=== PATIENT | male | born 1990 | race Caucasian/White ===

== ENCOUNTER 2019-12-19 08:02 | Emergency (ER) | payer OTHER, BC, SELFPAY ==
--- NOTE | ~2019-12-19 | XR_ITS ---
XR hand RT min 3V 12/19/2019 08:24 Indication: Injury to the right hand. Metacarpal pain. Procedure: 3 views right hand Comparison: No prior studies for comparison. Findings: There is an oblique shaft fracture of the fourth metacarpal with one cortical bone width ul mark and dorsal displacement. No significant angulation. No other fractures. Impression: 1: Oblique extra-articular right fourth metacarpal fracture with mild ulnar/dorsal displacement. Reviewed, dictated and finalized at location A. Impression: 1: Oblique extra-articular right fourth metacarpal fracture with mild ulnar/shima christiano displacement.
--- NOTE | 2019-12-19 08:05 | ED.GENADULT ---
HPI - General Adult General Chief complaint: Extremity Injury, Upper Stated complaint: right arm swollen Time Seen by Provider: 12/19/19 08:05 Source: patient Mode of arrival: ambulatory Limitations: no limitations History of Present Illness HPI narrative: 29-year-old male patient presents to the [facility] with complaints of right hand pain. Patient states he was at work last night and was trying to push a height together and states that the pipe slipped jamming into his ring finger on the right hand. Patient states he noticed today that he started having some swelling to the area. Patient states it hurts to move it especially when he tries to hyperextend the wrist. Patient denies taking anything for pain. Patient denies putting any ice on it. Patient notified that we do not do Workmen's Comp. paperwork here. Patient is aware of this. Related Data Home Medications Medication Instructions Recorded Confirmed No Home Medications 12/19/19 12/19/19 Allergies Allergy/AdvReac Type Severity Reaction Status Date / Time No Known Drug Allergies Allergy Unknown Verified 12/19/19 08:19 Review of Systems Review of Systems: Narrative: CONSTITUTIONAL: Denies fever, chills, or sweats. EYES: Denies visual changes, redness, or discharge. ENT: Denies rhinorrhea, congestion, sore throat, or otalgia. CARDIOVASCULAR: Denies chest pain, palpitations, or edema. RESPIRATORY: Denies cough or dyspnea. GASTROINTESTINAL: Denies abdominal pain, nausea, vomiting, or diarrhea. GENITOURINARY: Denies dysuria or hematuria. SKIN: Denies rash or itching. MUSCULOSKELETAL: Denies back pain, joint pain, or myalgia. Positive right hand pain since last night NEUROLOGIC: Denies headache, numbness, or weakness. PSYCHIATRIC: Denies anxiety or depression. PMFSH Comments At the time of my signature I agree with nursing past medical history, surgical, social, and family history. There is no relevant family history pertinent to the presenting complaint. Exam Narrative: Exam Narrative: GENERAL: Well-appearing, well-nourished, and in no acute distress. HEAD: Normocephalic, atraumatic. EYES: PERRLA and EOMI. ENT: Nares clear, no rhinorrhea or epistaxis. Mucous membranes moist. NECK: Supple. No lymphadenopathy CHEST: Clear to auscultation. No respiratory distress. HEART: Regular rate and rhythm. No murmur heard. Normal peripheral pulses. ABDOMEN: Soft, nontender, nondistended, normal active bowel sounds. EXTREMITIES: The R hand is without obvious asymmetry or deformity when compared to the L hand. Slight swelling over the dorsal side of the right hand along the fourth metacarpal, no erythema, atrophy, or obvious deformity. No surface trauma, open wounds, nail avulsion, tissue avulsion, partial or complete amputation, subungual hematoma, bony deformity. Normal cascade of fingers. Normal flexion and extension of fingers. FDS and FDP intact aganist restistance. No focal fullness, thobbing pain, swelling of fingertip. tenderness to palpation over the fourth digit and fourth metacarpal. Pulses and cap refill. SKIN: Warm, dry, no rash. NEURO: No focal deficits. Alert and oriented x3. Course Reevaluation(s) Reevaluation #1: Reevaluated patient after his x-ray had resulted. Notified him that he does have a fourth metatarsal fracture on the right hand. Patient is right-hand dominant. Discussed with patient that our plan of care is to go ahead and splint him today and I am going to have him follow-up with Dr. White who is our hand surgeon for further evaluation and treatment. Discussed with patient he can take Tylenol ibuprofen as needed for the pain. Discussed with him that while I do not do the Workmen's Comp. paperwork I will go ahead and write him off of work until he follows up with Dr. 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 Patient verbalizes understanding of this and denies any other questions or concerns. Date:
[2019-12-19 08:15] VITALS: BP 145/87; PULSE 84; RESP 16; TEMP 37.6; O2SAT 100
== END 2019-12-19 08:55 | disposition home or self-care (01) ==
PROVIDERS: Emergency Provider Nurse Practitioner Family
DX: S62.324A Displaced fracture of shaft of fourth metacarpal bone, right hand, initial encounter for closed fracture (principal); W23.0XXA Caught, crushed, jammed, or pinched between moving objects, initial encounter
CPT/HCPCS: 29125; 73130; 99214; G0463

== ENCOUNTER 2023-03-17 14:01 | Emergency (ER) | payer BC, SELFPAY ==
--- NOTE | 2023-03-17 14:02 | ED.SKABFB ---
HPI - Skin/Abscess/Foreign Bdy General Chief complaint: Skin/Abscess/Foreign Body Stated complaint: Bumps/Lumps on Back Time Seen by Provider: 03/17/23 14:02 Source: patient Mode of arrival: ambulatory Limitations: no limitations History of Present Illness HPI narrative: Tera is a 32-year-old male patient presenting to the clinic today with complaints of a skin lesion to his upper midback. He reports that it started bleeding and got cut today. States he laid down on the bed and had blood all over the bed and it stuck to the bed. Related Data Home Medications Medication Instructions Recorded Confirmed No Home Medications 12/19/19 12/19/19 Allergies Allergy/AdvReac Type Severity Reaction Status Date / Time No Known Drug Allergies Allergy Unknown Verified 12/19/19 08:19 Review of Systems Review of Systems: Pertinent positives per HPI. Patient denies any fever, chills, rash, headache, visual changes, dizziness, cough, runny nose, sore throat, shortness of breath, chest pain, palpitations, nausea, vomiting, diarrhea, constipation, abdominal pain, or any urinary issues. PMFSH Comments At the time of my signature, I reviewed and agree with the nursing past medical, surgical, social, and family history. There is no relevant family history pertinent to the patient complaint. Exam Narrative: General: Well-developed, well nourished, in no apparent distress Head: Normocephalic, atraumatic. Cardio: Regular rate and rhythm, s1 and s2 normal, no murmur appreciated. Resp: Clear to auscultation bilaterally, no rhonchi, rales, wheezing or rubs. Integumentary: [place], warm, and dry, red raised papular skin lesion measuring 1 cm x 1 cm to the right upper midback-dry blood noted around the lesion Course Course Emergency Course: Portions of this record may have been created with voice recognition software. Level of Care: Express Care Visit Vital Signs Vital signs: Vital Signs Temperature 36.8 C 03/17/23 14:16 Pulse Rate 87 03/17/23 14:16 Respiratory Rate 18 03/17/23 14:16 Blood Pressure 143/81 H 03/17/23 14:16 Pulse Oximetry 100 03/17/23 14:16 Oxygen Delivery Room Air 03/17/23 14:16 Temperature 36.8 C 03/17/23 14:16 Pulse Rate 87 03/17/23 14:16 Respiratory Rate 18 03/17/23 14:16 Blood Pressure 143/81 H 03/17/23 14:16 Pulse Oximetry 100 03/17/23 14:16 Oxygen Delivery Room Air 03/17/23 14:16 Vital signs reviewed MDM - Skin/Abscess/Foreign Bdy MDM Narrative Medical decision making narrative: At the time of visit patient is resting comfortably on exam table. Pain patient has a red papular skin lesion to the right mid upper back. Recommend follow-up with dermatology for further evaluation and possible removal. Supportive measures were discussed with the patient he voiced understanding discharge instructions agrees to treatment plan. Differential Diagnosis Differential diagnosis: Likely other (Skin lesion, nevi, skin tag) Discharge Plan Discharge Clinical Impression: Skin lesion Patient Disposition: Home, Self-Care Condition: Stable Instructions: Antibiotic Form Additional Instructions: Keep area clean and dry May apply antibiotic ointment over the area twice daily as needed Keep covered with Band-Aid Follow-up with dermatology as discussed Dr. Headley office Prescriptions: No Action No Home Medications Follow-up/Referrals: UNKNOWN,DOCTOR [Primary Care Provider] - Time of Disposition: 14:33 Quality NIHSS Nursing Documentation ED NIHSS nursing documentation: reviewed/agree
[2023-03-17 14:16] VITALS: BP 143/81; PULSE 87; RESP 18; TEMP 36.8; O2SAT 100
== END 2023-03-17 14:39 | disposition home or self-care (01) ==
PROVIDERS: Emergency Provider Nurse Practitioner Family
DX: L98.9 Disorder of the skin and subcutaneous tissue, unspecified (principal)
CPT/HCPCS: 99211; G0463

== ENCOUNTER 2025-04-07 21:42 | Emergency (ER) | payer SELFPAY ==
--- NOTE | ~2025-04-07 | XR_ITS ---
X-rays right femur Indication: Pain Comparison: None Technique: 2 views right femur 4 films Findings/Impression: 1. No fracture or other acute abnormality right femur. 2. Right hip and knee joints appear intact. Reviewed, dictated and finalized at location R.
[2025-04-07 21:44] VITALS: BP 137/97; PULSE 96; RESP 18; TEMP 36.4; O2SAT 96
[2025-04-08 00:39] VITALS: BP 132/69; PULSE 79; RESP 16; O2SAT 99
--- NOTE | 2025-04-12 07:41 | ED.EXTPRO ---
HPI - Extremity Problem General Chief complaint: Extremity Problem,Nontraumatic Stated complaint: pulsing in right leg x 1 week History of Present Illness HPI Narrative: For the past week, patient has noticed that on his right leg, he will occasionally see an area that appears to be pulsing or spasming. Does not have any pain, has no problems walking. Related Data Home Medications ?Medication ?Instructions ?Recorded ?Confirmed ?Last Taken ?Type No Home Medications 12/19/19 12/19/19 Unknown History Allergies Allergy/AdvReac Type Severity Reaction Status Date / Time No Known Allergies Allergy Verified 04/07/25 21:43 Review of Systems Review of Systems: All systems reviewed & are unremarkable except as noted in HPI and below Exam Narrative: EXAMINATION OF ORGAN SYSTEMS/BODY AREAS: Constitutional: Vital signs per nursing GENERAL:[No acute distress, non-toxic appearing.] HEAD: Normal with no signs of head trauma. EYES: EOMI, conjunctiva normal ENT: Hearing grossly intact LUNGS: Nonlabored breathing. HEART: [Regular rate and rhythm] ABD: [Soft], [nontender to palpation] EXT: Normal range of motion; no tenderness to palpation, no swelling or tenderness to either leg. SKIN: [No rashes or lesions.] NEURO: [Alert and oriented x 3. No gross focal sensory or strength deficits.] PSYCH: Normal affect Course Vital Signs Vital signs: Vital Signs Temperature 97.6 F 04/07/25 21:44 Pulse Rate 96 04/07/25 21:44 Respiratory Rate 18 04/07/25 21:44 Blood Pressure 137/97 H 04/07/25 21:44 Pulse Oximetry 96 04/07/25 21:44 Temperature 97.6 F 04/07/25 21:44 Pulse Rate 79 04/08/25 00:39 Respiratory Rate 16 04/08/25 00:39 Blood Pressure 132/69 04/08/25 00:39 Pulse Oximetry 99 04/08/25 00:39 MDM - Extremity (Nontraumatic) MDM Narrative Medical decision making narrative: Patient presents with concern that occasionally he will see with looks like either a throbbing or rippling across his right leg, he points at where it is, I did note that this is the vastus medialis muscle, I do not see anything abnormal about it; no signs of DVT without any swelling or pain. He is ambulating without issues. They will follow-up with the orthopedic surgeon if they need further evaluation or imaging return precautions provided Discharge Plan Discharge Clinical Impression: Normal exam Patient Disposition: Home Condition: Stable Additional Instructions: I do not see anything abnormal about your x-ray or your exam, please follow-up with orthopedics as needed. Patient Language: [place] Prescriptions: No Action No Home Medications Follow-up/Referrals: UNKNOWN,DOCTOR [Primary Care Provider]
== END 2025-04-08 02:28 | disposition home or self-care (01) ==
LOC: ANHED 04-08 00:55
PROVIDERS: Emergency Provider Emergency Medicine
DX: Z04.89 Encounter for examination and observation for other specified reasons (principal)
CPT/HCPCS: 73552; 99283